=== PATIENT | female | born 1990 | race Caucasian/White ===

== ENCOUNTER → 2020-10-04 | Outpatient (CLI) | payer BC ==
[~2020-10-04] MED LIST: HYDR-2761 PO; INSU100C4 SQ; INSU100V6 SQ; LIPITOR80 MG PO; LISI-517 PO; NIAC1000 PO; OXYC1TAB15 PO; PROM25TA10 PO
--- NOTE | 2020-10-04 13:35 | KCIC ---
EXAMINATION: MRI LEFT SHOULDER WITHOUT IV CONTRAST CLINICAL HISTORY: Left shoulder pain and limited range of motion x1 year TECHNIQUE: Multiplanar multisequential images obtained through the shoulder without intravenous contr ast. COMPARISON: None FINDINGS: TENDONS: - Supraspinatus: Within normal limits. - Infraspinatus: Small near full-thickness interstitial tear in the anterior third of the tendon and associated rotator cuff tendinosis. - Subscapularis: Within normal limits. - Teres Minor: Within normal limits. - Biceps Tendon: The long head biceps tendon is intact and appropriately located. MUSCLES: Muscle bulk and signal intensity are within normal limits. LABRUM: No discrete tear. GLENOHUMERAL JOINT: - Joint Fluid: No joint effusion or synovitis. - Cartilage: Within normal limits. ACROMIOCLAVICULAR JOINT: Within normal limits. BONES/MARROW: No evidence of acute fracture or suspicious marrow replacing process. OTHER: Mild subacromial/subdeltoid bursal thickening and fluid distention. IMPRESSION: Near full thickness interstitial tear in the anterior infraspinatus tendon. Electronically signed by: Gabe Hernadez DO (10/04/2020 1:33 PM) [id number]
== END ==
LOC: KCIC MRI 08:22
PROVIDERS: ATTEND Orthopaedic Surgery
DX: S46.812A Strain of other muscles, fascia and tendons at shoulder and upper arm level, left arm, initial encounter (principal); X58.XXXA Exposure to other specified factors, initial encounter; Y93.89 Activity, other specified; Y92.89 Other specified places as the place of occurrence of the external cause; Y99.8 Other external cause status
CPT/HCPCS: 73221

== ENCOUNTER → 2020-11-02 | Outpatient (CLI) | payer BC | LOC: LAB 10:21 | PROVIDERS: ATTEND Orthopaedic Surgery | DX: Z01.812 Encounter for preprocedural laboratory examination (principal); Z20.822 Contact with and (suspected) exposure to COVID-19; M75.122 Complete rotator cuff tear or rupture of left shoulder, not specified as traumatic; M75.42 Impingement syndrome of left shoulder | CPT/HCPCS: U0003 ==

== ENCOUNTER 2020-11-05 09:21 | Day surgery (SDC) | payer BC ==
--- NOTE | 2020-11-04 19:17 | PDOC1 ---
History and Physical Date of Admission Date of Admission 11/05/2020 Identification/Chief Complaint Chief Complaint Left shoulder pain Source Source: Chart review, Patient History of Present Illness History of Present Illness Karie is a 30-year-old new patient here with left shoulder pain. She is right handed and works at [employer]. Type 1 diabetic; she takes ibuprofen and Percocet for pain. Previous patient of mine; I have injected her hand before. She had an EMG several years ago. She describes popping in her thumb with associated random "locking" to her thumb and wrist despite use of a brace. She is also reporting tingling and numbness in her fingers that wakes her up at night. Patient is locating left shoulder pain following a fall in 2008 where she "sprained" her shoulder. There was not much pain after the injury although her shoulder has recently become more painful over the past 3-4 months. She has pain holding a gallon of milk, sleeping on her side, or reaching overhead. Nonoperative treatment including physical therapy and cortisone injection were tried previously. Past Medical History Past Medical History Type 1 diabetes. High cholesterol. Cardiovascular: Hyperlipidemia Endocrine: Diabetes Past Surgical History Past Surgical History: Tubal Ligation, Tonsillectomy Family History Family History Mother: hypoglycemic, COPD, emphysema Father: diagnosed with Diabetes, Heart Disease Paternal Grand Mother: Diabetes Family History: Diabetes, Heart Disease Social History Smoke: <1 pack per day ALCOHOL: none Current Medications Current Medications Current Medications Fentanyl Citrate (Fentanyl 2ml Vial) 25 mcg PRN Q5MIN PRN IVP MILD PAIN 1-3; Start 11/05/20 at 06:00; Stop 11/06/20 at 05:59 Fentanyl Citrate (Fentanyl 2ml Vial) 50 mcg PRN Q5MIN PRN IVP MODERATE PAIN 4- 6; Start 11/05/20 at 06:00; Stop 11/06/20 at 05:59 Morphine Sulfate (Morphine Sulfate) 1 mg PRN Q10MIN PRN IVP SEVERE PAIN 7-10; Start 11/05/20 at 06:00; Stop 11/06/20 at 05:59 Ringer's Solution 1,000 ml @ 30 mls/hr Q24H IV ; Start 11/05/20 at 06:00; Stop 11/05/20 at 17:59 Hydromorphone HCl (Dilaudid) 0.5 mg PRN Q10MIN PRN IVP SEVERE PAIN 7-10, 2nd CHOICE; Start 11/05/20 at 06:00; Stop 11/06/20 at 05:59 Prochlorperazine Edisylate (Compazine) 5 mg PACU PRN PRN IVP NAUSEA, MRX1; Start 11/05/20 at 06:00; Stop 11/06/20 at 05:59 Cefazolin Sodium/ Dextrose 50 ml @ 100 mls/hr 1X PREOP PRN IV PRIOR TO PROCEDURE; Start 11/05/20 at 06:00; Stop 11/05/20 at 18:00 Active Scripts Active Reported Hydrocodone-Apap 5-325 (Hydrocodone Bit/Acetaminophen) 1 Tab Tablet 1 Tab PO PRN Q6HRS PRN Percocet 5-325 Mg Tablet (Oxycodone/Acetaminophen) 1 Each Tablet 1 Tab PO QIDPRN PRN MDD 4 Tablet(s) 5 Days Niaspan (Niacin) 1,000 Mg Tab.er.24h 1 Tab PO BID Lipitor (Atorvastatin Calcium) 80 Mg Tablet 80 Mg PO HS Lisinopril 5 Mg Tablet 5 Mg PO HS Humalog (Insulin Lispro) 100 Unit/1 Ml Vial 100 Unit SQ 1X Allergies Allergies: Coded Allergies: latex (Verified Allergy, Intermediate, Swelling, 11/03/20) Physical Exam General: Alert, Cooperative HEENT: Atraumatic, Mucous membr. moist/pink Heart: RRR Abdomen: Soft Extremities: Other (Gross alignment of the LEFT shoulder is normal. Tenderness to palpation over the anterior acromion. Strength is 5/5 for the supraspinatus and infraspinatus but painful. No evidence of instability. Range of motion is 160/150/50/T9. Painful resisted external rotation. Positive Neer's, Vaughn, and Bill's impingement tests. Skin, pulses, and sensation normal) Skin: No breakdown, No significant lesion Neuro: Sensation intact Images Images [facility] [id number] [place] [address] IMAGING REPORT Signed PATIENT: KARIE CHAVES ACCOUNT: [id number] : 1990 [facility] MRI AGE: 30 SEX: F EXAM STATUS: REG CLI ORD. PHYSICIAN: LIOR WEBSTER MD REASON: LEFT SHOULDER PAIN PROCEDURE: UPPER EXT JOINT WO CONT LEFT EXAMINATION: MRI LEFT SHOULDER WITHOUT IV CONTRAST CLINICAL HISTORY: Left shoulder pain and limited range of motion x1 year TECHNIQUE: Multiplanar multisequential images obtained through the shoulder without intravenous contrast. COMPARISON: None FINDINGS: TENDONS: - Supraspinatus: Within normal limits. - Infraspinatus: Small near full-thickness interstitial tear in the anterior th ird of the tendon and associated rotator cuff tendinosis. - Subscapularis: Within normal limits. - Teres Minor: Within normal limits. - Biceps Tendon: The long head biceps tendon is intact and appropriately located. MUSCLES: Muscle bulk and signal intensity are within normal limits. LABRUM: No discrete tear. GLENOHUMERAL JOINT: - Joint Fluid: No joint effusion or synovitis. - Cartilage: Within normal limits. ACROMIOCLAVICULAR JOINT: Within normal limits. BONES/MARROW: No evidence of acute fracture or suspicious marrow replacing process. OTHER: Mild subacromial/subdeltoid bursal thickening and fluid distention. IMPRESSION: Near full thickness interstitial tear in the anterior infraspinatus tendon. Electronically signed by: Gabe Laboy DO (10/04/2020 1:33 PM) [id number] DICTATED and SIGNED BY: GABE LABOY DO DATE: 10/04/20 1324 VTE Prophylaxis Ordered VTE Prophylaxis Devices: Yes VTE Pharmacological Prophylaxi: No Assessment/Plan Assessment/Plan Despite her young age she does have a rotator cuff tear, at least high-grade interstitial tearing. We discussed options for treatment. Due to the diabetes, cortisone injections are relatively contraindicated. I recommended arthroscopy, subacromial decompression, and rotator cuff repair. We talked about the potential risks including stiffness and frozen shoulder, bleeding, infection, blood clots, repeat tearing, as well as the expected rehabilitation and restrictions postoperatively. We discussed risks of anesthesia and surgery. All of her questions about surgery were answered and she desires to proceed. She is here today for elective left shoulder arthroscopy, subacromial decompression, and rotator cuff repair. Justifications for Admission Other Justification LIOR WEBSTER MD Nov 04, 2020 19:17
[~2020-11-05] VITALS: Ht 160 cm; Wt 90.3 kg
[~2020-11-05 09:21] MED LIST changes: -INSU100C4 SQ; +IV RINGERS,LACTATED 1000ML 1,000 ML IV SCH; +PROCHLORPERAZINE 10 MG/2 ML VIAL. IVP PRN; -PROM25TA10 PO; +fentaNYL PF VIAL 100 MCG/2 ML VIAL IVP PRN
[2020-11-05] MEDS ORDERED: INSU100C4 SQ (09:45)
[2020-11-05] MEDS ORDERED: ROCURONIUM 50 MG/5 ML VIAL. ONE (11:16)
[2020-11-05] MEDS ORDERED: fentaNYL PF VIAL 250 MCG/5 ML VIAL ONE (11:16)
[2020-11-05] MEDS ORDERED: SEVOFLURANE > 120 MINUTES. IH ONE (11:20)
[2020-11-05] MEDS ORDERED: PROPOFOL 10 MG/ML (20ML) VIAL. IV ONE (11:20)
[2020-11-05] MEDS ORDERED: DEXAMETHASONE SOD PHOS 4 MG/ML VIAL ONE (11:20)
[2020-11-05] MEDS ORDERED: LIDOCAINE 2% PF 5 ML VIAL. ONE (11:20)
[2020-11-05] MEDS ORDERED: ONDANSETRON PF 4 MG/2 ML VIAL. ONE (11:20)
[2020-11-05] MEDS ORDERED: BUPIVACAINE-EPI 0.25% 30 ML VIAL KIT. ONE ×2 (11:38)
[2020-11-05] MEDS ORDERED: EPINEPHrine VIAL 30 MG/30 ML VIAL ONE (11:38)
[2020-11-05] MEDS ORDERED: MIDAZOLAM HCL/PF 2 MG/2 ML VIAL. ONE (11:40)
[2020-11-05] MEDS ORDERED: PHENYLEPHRINE in 0.9% NACL PF 1 MG/10 ML SYRINGE. IV ONE (12:42)
[2020-11-05] MEDS ORDERED: ceFAZolin SODIUM IV Push 1 GM VIAL. IVP ONE ×2 (12:56)
--- NOTE | 2020-11-05 14:11 | PDOC4 ---
Operative Note Operative Note Date of Procedure: November 05, 2020 Pre-Op Diagnosis: Incomplete tear of left rotator cuff, unspecified whether traumatic - M75.112 Impingement syndrome, shoulder, left - M75.42 Post-Op Diagnosis: Incomplete tear of left rotator cuff, unspecified whether traumatic - M75.112 Impingement syndrome, shoulder, left - M75.42 Procedure: Left shoulder, repair of ruptured musculotendinous cuff (rotator cuff) open, acute CPT 20196 Arthroscopy, left shoulder, surgical; decompression of subacromial space with partial acromioplasty CPT 62903 Surgeon: Lior Webster MD Industrial Boilermaker: JULIUS Bell Anesthesia: General EBL: 25 mL Specimens Obtained: none Complications: none Drains: none Findings: High-grade partial-thickness and interstitial tear, involving the full-thickness of the rotator cuff without detachment. The tear could be visualized both from the articular and the bursal aspects with macerated and disorganized tendon fibers, and when palpated is a thin area of near full- thickness defect. Implants: Arthrex swivel lock anchors 4.75 mm x 4 Indications for Procedure: This 30-year-old woman has pain and weakness in the shoulder despite nonoperative treatment. Exam MRI and history are consistent with tendinitis or rotator cuff tear and impingement syndrome. I recommended arthroscopy, subacromial decompression, and rotator cuff repair. We talked about the potential risks of surgery such as bleeding infection stiffness neurovascular injury continued pain or weakness or other potential surgical or anesthetic complications. All of her questions about surgery were answered and she desires to proceed. A written consent was obtained. Procedure in Detail: The patient was identified in the preoperative holding area. The correct left shoulder was marked by me. The patient was taken to the operating room where general anesthesia was used. The patient was positioned in the beachchair position with the bony prominences well-padded and the eyes protected. Preoperative antibiotics were given intravenously. A timeout procedure was performed. Under sterile technique 20 mL of bupivacaine with epinephrine was injected into the subacromial space and glenohumeral joint. The limb was then thoroughly prepared with surgical ChloraPrep solution circumferentially. Sterile waterproof arthroscopy shoulder drapes were applied, along with an impervious stockinette over the arm, and a Spider arm tiwari. Posterior, posterolateral, lateral, and anterior arthroscopy portals were used. The glenohumeral joint showed normal articular surfaces of the humeral head and glenoid. The biceps tendon was palpated with the shaver, and retracted into the joint, and the tendon appears normal. There is a high-grade at least partial thickness cuff tear at the footprint and this was marked with a PDS suture. The subacromial space was entered. The anterior acromion was prominent and the subacromial space was narrowed. The [email or web address] Edge thermal energy bipolar device was used for hemostasis and to resect the undersurface periosteum exposing the prominent anterior acromion. A 6.0 mm oval gabriel was used for the acromioplasty. A three-stage acromioplasty was performed, with the gabriel first laterally, removing anterior acromion, using the distal clavicle as a reference. The gabriel was then placed in the posterior portal, and a cutting block technique was used for smoothing of the lateral edge of the acromion tapering the anterior acromion into a Bigliani type I configuration. Final smoothing of the acromion was performed with the gabriel again in the lateral portal, and direct arthroscopic visualization. The impingement of the subacromial space was now nicely decompressed. The cuff tear was identified at the marker suture. The arthroscopic instruments were removed. Antibiotics were redosed. Outer gloves were changed. The skin was prepared a second time with ChloraPrep solution. An anterior lateral deltoid raphae splinting incision was used. Care was made not to extend more than 4 cm distally so as to avoid axillary nerve injury. Self-retaining retractors were placed including Kobel retractors due to the patients body habitus. There was a high grade partial-thickness tear, which was easily completed into a full-thickness tear with minimal incision of the cuff at the lateral footprint with a 15 blade scalpel. Some of the abnormal tissue was debrided carefully with a shaver, back to healthy tendon, approximately 10 mm in thickness, which was now repaired to the footprint securely. A rongeurs and a bone punch were used to decorticate the supraspinatus footprint, and create a "crimson duvet". The 2 medial 4.75 mm swivel lock anchors with swaged suture tapes were used. All of the medial sutures were deployed with [employer] scorpion device, about 16 mm from the distal edge of the cuff. The medial mattress sutures were secured and tied, and Guillermo my metal forger's assistant held tension reducing the cuff while the sutures were tied, and these medial mattress sutures were placed in a ripstop pattern to prevent the tapes from tearing through the abnormal cuff tissue. The swaged suture tapes were then trimmed, the tapes were crossed, and the 2 lateral row anchors were now placed on the humeral cortex for secure speed bridge repair. The additional sutures from the lateral row anchors were used anteriorly and posteriorly to secure the edges of the dog ear of the tear and to improve the strength of the repair. The shoulder was taken through a range of motion, and the repair security confirmed. Copious saline irrigation was used. I closed the fascia of the deltoid with #1 Vicryl suture in a [id number] fashion. My metal forger's assistant Braxton then completed the subcutaneous closure with 2-0 Vicryl. He closed the portals with #3-0 Prolene. He repaired the skin incision with #3-0 Stratafix, Mastisol and Steri- Strips. He injected an additional 30 mL of bupivacaine with epinephrine. Xeroform was used over the portals. A bulky sterile dressing was applied. A [employer]Joy UltraSling was applied. There were no apparent complications. LIOR WEBSTER MD Nov 05, 2020 14:11
[2020-11-05] MEDS ORDERED: MORPHINE SULFATE 2 MG/ML VIAL. ONE ×2 (14:28→15:44)
[2020-11-05] MEDS: MORPHINE SULFATE 2 MG/ML VIAL. IVP PRN ×3 (14:30→16:37)
[2020-11-05] MEDS ORDERED: HYDROmorphone 2 MG/ML VIAL ONE (14:46)
[2020-11-05] MEDS: HYDROmorphone 2 MG/ML VIAL IVP PRN ×4 (14:48→15:26)
[2020-11-05] MEDS ORDERED: oxyCODONE/APAP 5/325 1 TAB TABLET PO ONE ×2 (15:15)
[2020-11-05 15:33] VITALS: BP 124/66
[2020-11-05] MEDS ORDERED: PROM25TA10 PO (15:33)
[2020-11-05] MEDS ORDERED: PROCHLORPERAZINE 10 MG/2 ML VIAL. ONE (15:43)
== END 2020-11-05 16:27 | disposition home or self-care (01) ==
LOC: SURG 09:21
PROVIDERS: ATTEND Orthopaedic Surgery
DX: M75.112 Incomplete rotator cuff tear or rupture of left shoulder, not specified as traumatic (principal); M75.42 Impingement syndrome of left shoulder; I10 Essential (primary) hypertension; E78.00 Pure hypercholesterolemia, unspecified; E11.9 Type 2 diabetes mellitus without complications; F32.9 Major depressive disorder, single episode, unspecified; F41.9 Anxiety disorder, unspecified; Z87.891 Personal history of nicotine dependence; Z98.890 Other specified postprocedural states; Z98.51 Tubal ligation status; Z79.4 Long term (current) use of insulin; Z91.040 Latex allergy status; Z72.89 Other problems related to lifestyle
CPT/HCPCS: 29827; 81025; 82962; C1713; J0171; J0690; J0780; J1100; J1170; J2250; J2270; J2370; J2405; J2704; J3010; J7120; A4623

== ENCOUNTER 2021-07-22 07:33 | Day surgery (SDC) | payer BC ==
[~2021-07-22] VITALS: Ht 157.5 cm; Wt 90.0 kg
[~2021-07-22 07:33] MED LIST changes: +HYDROmorphone 2 MG/ML VIAL IVP PRN; +INSU100C4 SQ; -LISI-517 PO; +LISI5TAB15 PO; +PROM25TA10 PO
[2021-07-22] MEDS ORDERED: fentaNYL PF VIAL 100 MCG/2 ML VIAL ONE ×2 (08:32→11:21)
[2021-07-22] MEDS ORDERED: PROPOFOL 10 MG/ML (20ML) VIAL. IV ONE (08:32)
[2021-07-22] MEDS ORDERED: ONDANSETRON PF 4 MG/2 ML VIAL. ONE (08:32)
[2021-07-22] MEDS ORDERED: LIDOCAINE 2% PF 5 ML VIAL. ONE (08:32)
[2021-07-22] MEDS ORDERED: ROCURONIUM 50 MG/5 ML VIAL. ONE (08:32)
[2021-07-22] MEDS ORDERED: DEXAMETHASONE SOD PHOS 4 MG/ML VIAL ONE (08:32)
[2021-07-22] MEDS ORDERED: MIDAZOLAM HCL/PF 2 MG/2 ML VIAL. ONE (08:33)
[2021-07-22] MEDS ORDERED: FAMOTIDINE 20 MG/2 ML VIAL ONE (10:48)
[2021-07-22] MEDS ORDERED: MORPHINE SULFATE 2 MG/ML INJ. ONE ×2 (11:11→11:45)
[2021-07-22] MEDS: MORPHINE SULFATE 2 MG/ML INJ. IVP PRN ×4 (11:13→12:06)
[2021-07-22] MEDS: fentaNYL PF VIAL 100 MCG/2 ML VIAL IVP PRN ×2 (11:22→11:35)
[2021-07-22] MEDS ORDERED: HYDR-2765 PO (12:05)
--- NOTE | 2021-07-22 12:08 | DISCH ---
DISCHARGE INSTRUCTIONS Condition on Discharge Condition on Discharge: Stable Activity After Discharge Activity Instructions for Disc: Other, see below (Avoid hard grasping may do fine motor use such as eating writing typing) Weight Bearing Status after Di: Non weight bearing Diet after Discharge Diet after Discharge: Diabetic No Calorie Level Wound Incision Care Wound/Incision Care: Ice to area for comfort, Keep wound elevated, Change dressing (May remove dressing in [address]-Aids over the incision sites) Contacting the DRBecka after DC Call your doctor for: Concerns you may have Follow-Up Follow up with: Dr. Martinez or Jorge Luis 10 days WILI MARTINEZ MD Jul 22, 2021 12:08
[2021-07-22 12:20] VITALS: BP 115/52
[2021-07-22] MEDS ORDERED: HYDROcodone/APAP 7.5/325MG 1 TAB TABLET PO ONE (12:30)
--- NOTE | 2021-07-22 13:46 | PDOC4 ---
Operative Note Operative Note Date of surgery: 07/22/2021 Preoperative diagnosis: Right trigger thumb and de Quervain's tenosynovitis Postoperative diagnosis: Same Operative procedure: Right trigger thumb and first dorsal compartment releases Surgeon: Juan Anesthesia: General Estimated blood loss: 1 cc Complications: None Operative indications: Patient has clinical signs of de Quervain's tenosynovitis and trigger thumb unresponsive with bracing and other nonoperative treatment. I had gone over with him the functional anatomy the risks benefits postoperative course of potential release of both areas, the possibility of incomplete relief possibility of additional nerve or blood vessel damage infection incisional area pain medical or other anesthetic complications among others all his questions were answered she wishes to proceed with surgical evaluation and treatment Operative text: Patient was identified procedure verified patient placed in the supine position on the operating table. After adequate amounts of general anesthesia were administered the right upper extremity was prepped and draped in standard sterile fashion with the upper arm tourniquet and after timeout was performed patient procedure identified and verified the right upper extremity was exsanguinated by Esmarch bandage tourniquet inflated to 250 mmHg and a longitudinal incision was made over the radial styloid and first dorsal compartment was released to allow free movement of the tendons and some release of fluid was observed. A transverse incision was made at the base of the right thumb and with neurovascular bundles protected medially and laterally sharp incision was made in the tendon sheath and A1 betzy was divided eliminating any triggering. Thorough irrigation carried out normal saline solution 10 cc of half percent plain Marcaine were placed surrounding the incisions and closure accomplished with nylon suture in a vertical mattress fashion. Sterile soft dressings were placed and fingers were noted to be warm pink following deflation of the tourniquet. Patient was returned to recovery room stable condition having tolerated procedure well. WILI LENZ MD Jul 22, 2021 13:46
== END 2021-07-22 12:47 | disposition home or self-care (01) ==
LOC: SURG 07:33
PROVIDERS: ATTEND Orthopaedic Surgery
DX: M65.4 Radial styloid tenosynovitis [de Quervain] (principal); M65.311 Trigger thumb, right thumb; I10 Essential (primary) hypertension; E78.00 Pure hypercholesterolemia, unspecified; E11.9 Type 2 diabetes mellitus without complications; F41.9 Anxiety disorder, unspecified; F32.9 Major depressive disorder, single episode, unspecified; Z87.891 Personal history of nicotine dependence; Z79.899 Other long term (current) drug therapy; Z98.890 Other specified postprocedural states; Z98.51 Tubal ligation status; Z88.8 Allergy status to other drugs, medicaments and biological substances; Z91.040 Latex allergy status
CPT/HCPCS: 25000; 26055; 81025; 82962; J0690; J1100; J2250; J2270; J2405; J2704; J3010; J3490; A4657; A4930; A6452